=== PATIENT | male | born 1985 ===

== ENCOUNTER 2018-07-08 12:28 | Emergency (ER) | payer OTHER ==
[2018-07-08 13:12] VITALS: TEMP 98.2; O2SAT 100
[2018-07-08 13:38] LABS: BASO % 0.5 % (0.0-2.0); EOS # 0.3 K/uL (0.0-0.7); EOS % 4.1 % (0.0-4.0); HEMOGLOBIN 17.2 g/dL (12.0-18.0); LYMPH # 2.6 K/uL (1.0-4.3); LYMPH % 37.2 % (20.0-40.0); MEAN CORPUSCULAR HEMOGLOBIN 30.5 pg (27.0-31.0); MEAN CORPUSCULAR HGB CONC 34.4 g/dL (33.0-37.0); MEAN PLATELET VOLUME 7.9 fL (7.2-11.7); MONO # 0.5 K/uL (0.0-0.8); MONO % 7.7 % (0.0-10.0); NEUT # 3.5 K/uL (1.8-7.0); NEUT % 50.5 % (50.0-75.0); NRBC % 0.1 % (0.0-2.0); RBC 5.65 Mil/uL (4.40-5.90); RED CELL DISTRIBUTION WIDTH 12.6 % (11.5-14.5); WHITE BLOOD COUNT 6.9 K/uL (4.8-10.8)
[2018-07-08 13:41] LABS: MEAN CELL VOLUME 88.8 fL (80.0-94.0)
[2018-07-08 13:46] LABS: INR 1.1; PROTHROMBIN TIME 11.8 SECONDS (9.7-12.2)
[2018-07-08 13:49] LABS: ALB/GLOB RATIO 1.5 (1.0-2.1); ALBUMIN 5.2 g/dL (3.5-5.0); ALT/SGPT 33 U/L (21-72); AST/SGOT 42 U/L (17-59); BLOOD UREA NITROGEN 18 mg/dL (9-20); CALCIUM 9.4 mg/dl (8.6-10.4); GFR NON-AFRICAN AMERICAN > 60
[2018-07-08 14:00] LABS: CK-MB 3.59 ng/mL (0.0-3.38)
[2018-07-08] MEDS ORDERED: Sodium Chloride 0.9% 500 ML IV ONE ×2 (14:20→14:42)
--- NOTE | 2018-07-08 14:22 | RAD ---
Date of service: 07/08/2018 HISTORY: CP COMPARISON: Chest radiographs 04/15/2016. FINDINGS: LUNGS: No active pulmonary disease. PLEURA: No significant pleural effusion identified, no pneumothorax apparent. CARDIOVASCULAR: No aortic atherosclerotic calcification present. Normal cardiac size. No pulmonary vascular congestion. OSSEOUS STRUCTURES: No significant abnormalities. VISUALIZED UPPER ABDOMEN: Normal. OTHER FINDINGS: None. IMPRESSION: No interval acute cardiopulmonary disease appreciated.
[2018-07-08 14:23] LABS: URINE BILIRUBIN NEGATIVE (NEGATIVE); URINE BLOOD 3+ (NEGATIVE); URINE CLARITY Clear (Clear); URINE COLOR Yellow (YELLOW); URINE GLUCOSE (UA) NORMAL (Normal); URINE LEUKOCYTE ESTERASE NEG Leu/uL (Negative); URINE PROTEIN NEGATIVE (NEGATIVE); URINE UROBILINOGEN NORMAL mg/dL (0.2-1.0)
--- NOTE | 2018-07-08 14:33 | C.PDOC ---
History Of Present Illness 33 y/o male presents to the ED complaining of intermittent sharp left-sided chest pain that occurred yesterday and the day before. States the pain sometimes radiates up into left neck, and worsens with deep inspiration and palpation of the area. Patient has a PMHx of HTN and is complaint with his Losartan. Of note he has no PMD here in the [place] and gets his medications prescribed from [facility]. Patient denies any SOB, palpitations, cough, fever, abdominal pain, leg edema, or hx of smoking. Denies family hx of cardiac disease. Time Seen by Provider: 07/08/18 13:03 Chief Complaint (Nursing): Chest Pain History Per: Patient History/Exam Limitations: no limitations Onset/Duration Of Symptoms: Intermittent Episodes Current Symptoms Are (Timing): Still Present Quality: Sharp Exacerbating Factors: Deep Breathing Past Medical History Reviewed: Historical Data, Nursing Documentation, Vital Signs Vital Signs: Last Vital Signs Temp 98.2 F 07/08/18 12:50 Pulse 80 07/08/18 13:00 Resp 18 07/08/18 12:50 BP 159/103 H 07/08/18 13:00 Pulse Ox 100 07/08/18 12:50 - Medical History PMH: HTN Surgical History: No Surg Hx Family History: States: Hypertension - Social History Hx Tobacco Use: No Hx Alcohol Use: No Hx Substance Use: No - Immunization History Hx Tetanus Toxoid Vaccination: No Hx Influenza Vaccination: No Hx Pneumococcal Vaccination: No Review Of Systems Constitutional: Negative for: Fever, Chills Eyes: Negative for: Vision Change Cardiovascular: Positive for: Chest Pain. Negative for: Palpitations Respiratory: Negative for: Cough, Shortness of Breath Gastrointestinal: Negative for: Nausea, Vomiting, Abdominal Pain Musculoskeletal: Negative for: Back Pain, Other (Leg edema) Neurological: Negative for: Weakness, Numbness Physical Exam - Physical Exam Appears: Non-toxic, No Acute Distress Skin: Warm, Dry, No Rash Head: Atraumatic, Normacephalic Eye(s): bilateral: Normal Inspection, PERRL, EOMI Oral Mucosa: Moist Neck: Normal ROM Chest: No Deformity, Tenderness (Point tenderness over palpation of left chest), No Ecchymosis Cardiovascular: Rhythm Regular, No Murmur Respiratory: Normal Breath Sounds, No Rales, No Rhonchi, No Wheezing Gastrointestinal/Abdominal: Soft, No Tenderness, No Distention Extremity: Bilateral: Atraumatic, No Pedal Edema, Normal Color And Temperature Pulses: Left Dorsalis Pedis: Normal, Right Dorsalis Pedis: Normal Neurological/Psych: Oriented x3 Gait: Steady ED Course And Treatment - Laboratory Results Result Diagrams: 07/08/18 13:29 07/08/18 13:29 Lab Results: PT 11.8 SECONDS (9.7-12.2) 07/08/18 13:29 INR 1.1 07/08/18 13:29 APTT 34 SECONDS (21-34) 07/08/18 13:29 Troponin I < 0.0120 ng/mL (0.00-0.120) 07/08/18 13:29 Total Bilirubin 1.1 mg/dL (0.2-1.3) 07/08/18 13:29 AST 42 U/L (17-59) 07/08/18 13:29 ALT 33 U/L (21-72) 07/08/18 13:29 Alkaline Phosphatase 57 U/L (38-126) 07/08/18 13:29 Total Protein 8.6 g/dL (6.3-8.3) H 07/08/18 13:29 Albumin 5.2 g/dL (3.5-5.0) H 07/08/18 13:29 Globulin 3.4 gm/dL (2.2-3.9) 07/08/18 13:29 Albumin/Globulin Ratio 1.5 (1.0-2.1) 07/08/18 13:29 O2 Sat by Pulse Oximetry: 100 (RA) Pulse Ox Interpretation: Normal - Other Rad CXR X-Ray: Read By Radiologist Interpretation: Accession No. : [id number]. Patient Name / ID : DEVON PAREDES / [id number]. Exam Date : 07/08/2018 13:42:26 ( Approved ). Study Comment : Sex / Age : M / 33Y. Creator : nestor gamboa. Dictator : Nestor Grant MD. Division Toll Wire Chief : Intake Counselor : Nestor Grant MD. Approver2 : Report Date : 07/08/2018 14:03:15. My Comment : . Date of service: 07/08/2018. HISTORY: CP. COMPARISON: Chest radiographs 04/15/2016. FINDINGS: LUNGS: No active pulmonary disease. PLEURA: No significant pleural effusion identified, no pneumothorax apparent. CARDIOVASCULAR: No aortic atherosclerotic calcification present. Normal ca rdiac size. No pulmonary vascular congestion. OSSEOUS STRUCTURES: No significant abnormalities. VISUALIZED UPPER ABDOMEN: Normal. OTHER FINDINGS: None. IMPRESSION: No interval acute cardiopulmonary disease appreciated. Progress Note: Blood work, UA, and CXR ordered and reviewed. 1 bolus NS IV fluids infusing. CK/CKMB Ratio - 0.0104 (<2.5 - heart damage unlikely). Disposition Counseled Patient/Family Regarding: Studies Performed, Diagnosis, Need For Followup, Rx Given - Disposition Referrals: [facility] [Outside] Disposition: HOME/ ROUTINE Disposition Time: 15:05 Condition: STABLE Additional Instructions: FOLLOW UP IN THE MEDICAL CLINIC IN 1-2 DAYS RETURN TO E,ERGENCY ROOM IF YOUR SYMPTOMS RETURN/WORSEN Instructions: Chest Pain That Is Not Caused by the Heart (DC) Forms: [employer] (Botswanan) Print Language: [place] - Clinical Impression Clinical Impression: Non-cardiac chest pain - Scribe Statement The provider has reviewed the documentation as recorded by the Almazibcarly Killian Provider Attestation: All medical record entries made by the Almazibcarly were at my direction and personally dictated by me. I have reviewed the chart and agree that the record accurately reflects my personal performance of the history, physical exam, medical decision making, and the department course for this patient. I have also personally directed, reviewed, and agree with the discharge instructions and disposition.
[2018-07-08 14:40] LABS: BARBITURATES, UR NEGATIVE (NEGATIVE); BENZODIAZEPINES, UR NEGATIVE (NEGATIVE); OPIATES, UR NEGATIVE (NEGATIVE); PHENCYCLIDINE, UR NEGATIVE (NEGATIVE)
[2018-07-08 14:51] VITALS: BP 123/74; PULSE 72; RESP 16
--- NOTE | 2018-07-09 21:51 | CARD ---
APPROVED REPORT Date of service: 07/08/2018 EKG Measurement Heart [id number] <Conclusion> Normal sinus rhythm Normal ECG
== END 2018-07-08 15:28 | disposition home or self-care (01) ==
LOC: C.ER 12:28
DX: R07.89 Other chest pain (principal); I10 Essential (primary) hypertension